=== PATIENT | male | born 1965 | race Caucasian/White ===

== ENCOUNTER → 2018-04-04 16:31 | Outpatient (CLI) | payer BC, SELFPAY ==
[2018-04-04 17:54] LABS: Anion Gap 9 (5-15); BUN 12 mg/dL (7-18); BUN/Creat Ratio 13.1 RATIO (10-20); Calcium,Total 9.3 mg/dL (8.5-10.1); Chloride 104 mmol/L (98-107); Creatinine, Serum 0.92 mg/dL (0.70-1.30); EST Glomerular Filtration Rate 92 mL/min (>60); Est Glom Filt Rate - Afr Amer 111 mL/min (>60); Glucose 93 mg/dL (74-106); PSA,Total - Annual Screen 1.58 ng/mL (0.00-4.00); Potassium 4.2 mmol/L (3.5-5.1); Sodium Level 140 mmol/L (136-145)
== END ==
PROVIDERS: Family Provider Family Medicine; PCP Family Medicine; Visit Provider Family Medicine
DX: Z13.1 Encounter for screening for diabetes mellitus (principal); Z12.5 Encounter for screening for malignant neoplasm of prostate
CPT/HCPCS: 36415; 80048; 84153; G0103

== ENCOUNTER → 2022-10-27 | Outpatient (CLI) | payer OTHER, SELFPAY ==
[2022-10-27 10:22] LABS: Absolute Lymphocyte Count 1.89 X10^3/uL (0.83-4.51); Absolute Neutrophil Count 3.5 X10^3/uL (2.0-7.7); Basophil# 0.04 X10^3/uL; Basophil% 0.7 % (0-1); Eosinophil# 0.29 X10^3/uL; Eosinophils% 4.8 % (0-5); Erythrocyte Sedimentation Rate 11 mm/hr (0-20); Hematocrit 44.1 % (40-54); Lymphocyte # 1.89 X10^3/ul (0.83-4.51); Mean Corpuscular Hgb 29.6 pg (27.0-32.0); Mean Corpuscular Volume 87.2 fL (80-94); Mean Platelet Vol. 9.3 fl (6.2-12.0); Monocyte# 0.39 X10^3/uL; Monocyte% 6.4 % (0-10); NRBC Flagged by Analyzer 0 % (0-5); Neutrophil # 3.48 X10^3/uL (2.7-7.7); Neutrophil % 56.9 % (47-70); Platelet Count 269 K/mm3 (150-450); RBC Distribution Width CV 12.7 % (11.6-14.6); RBC Distribution Width SD 40.2 fl (35.1-43.9); Red Blood Count 5.06 M/mm3 (4.6-6.2); White Blood Count 6.1 K/mm3 (4.4-11.0)
[2022-10-27 10:39] LABS: Anion Gap 7 (5-15); BUN 9 mg/dL (7-18); BUN/Creat Ratio 12.3 RATIO (10-20); Calcium,Total 8.8 mg/dL (8.5-10.1); Chloride 107 mmol/L (98-107); Cholesterol 237 mg/dL (200); Creatinine, Serum 0.73 mg/dL (0.70-1.30); EST Glomerular Filtration Rate 118 mL/min (>60); Est Glom Filt Rate - Afr Amer 142 mL/min (>60); Glucose 115 mg/dL (74-106); High Density Lipoprotein 40 mg/dL; PSA,Total - Annual Screen 2.86 ng/mL (0.00-4.00); Potassium 3.9 mmol/L (3.5-5.1); Sodium Level 136 mmol/L (136-145); Triglycerides 123 mg/dL; Very Low Density Lipoprotein 25 mg/dL (5-40)
== END | disposition home or self-care (01) ==
LOC: MFPLAB 08:34
PROVIDERS: PCP Family Medicine; Visit Provider Family Medicine
DX: Z13.1 Encounter for screening for diabetes mellitus (principal); M54.9 Dorsalgia, unspecified; Z13.220 Encounter for screening for lipoid disorders; Z12.5 Encounter for screening for malignant neoplasm of prostate
CPT/HCPCS: 36415; 80048; 80061; 84153; 85025; 85652; G0103

== ENCOUNTER → 2025-03-25 | Outpatient (CLI) | payer OTHER, SELFPAY ==
[2025-03-25 10:44] LABS: Hematocrit 42.9 % (40-54); Hemoglobin 15.0 g/dL (13.0-16.5); Immature Granulocytes Count 0.020 X10^3/uL (0.0-0.0); Mean Corp Hgb Conc 35.0 g/dL (32-36); Mean Corpuscular Volume 85.1 fL (80-94); Mean Platelet Vol. 9.4 fl (6.2-12.0); NRBC Flagged by Analyzer 0 % (0-5); Platelet Count 272 K/mm3 (150-450); RBC Distribution Width CV 12.8 % (11.6-14.6); RBC Distribution Width SD 39.3 fl (35.1-43.9); Red Blood Count 5.04 M/mm3 (4.6-6.2); White Blood Count 8.1 K/mm3 (4.4-11.0)
[2025-03-25 10:54] LABS: AST(SGOT) 14 U/L (<=37); Alanine Aminotransfer ALT/SGPT 13 U/L (<=46); Albumin, Serum 4.1 g/dL (3.4-4.8); Alkaline Phosphatase 68 U/L (40-129); Anion Gap 12 (5-15); BUN 15 mg/dL (4-19); BUN/Creat Ratio 18.4 RATIO (10-20); CRP 3.03 mg/L (0.0-3.0); Calcium,Total 9.2 mg/dL (7.6-11.0); Carbon Dioxide 20.3 mmol/L (21.0-32.0); Chloride 104 mmol/L (98-108); Globulin 2.6 g/dL (2.2-4.2); Glucose 122 mg/dL (70-99); Potassium 3.9 mmol/L (3.3-5.1)
[2025-03-26 15:07] LABS: Lyme Scn Total Ab w/Rflx Negative (Negative)
== END | disposition home or self-care (01) ==
LOC: MFPLAB 08:35
PROVIDERS: PCP Family Medicine; Visit Provider Family Medicine
DX: R42 Dizziness and giddiness (principal)
CPT/HCPCS: 36415; 80053; 85025; 85652; 86140; 86618

== ENCOUNTER → 2025-05-21 | Outpatient (CLI) | payer OTHER, SELFPAY ==
--- NOTE | 2025-05-21 15:03 | CT_ITS ---
PROCEDURE: SINUS/FACIAL BONE 05/21/2025 REASON FOR EXAM: CHRONIC SINUSITIS TECHNIQUE: Procedure Code: CTSI Modality: CT Procedure: SINUS/FACIAL BONE Coronal and Sagittal reconstruction series were provided. One or more dose reduction techniques were used (e.g., Automated exposure control, adjustment of the mA and/or kV according to patient size, use of iterative reconstruction technique). RADIATION DOSE SUMMARY: CTDlvol: 28.14 mGy DLP: 1541.63 mGycm COMPARISON: None FINDINGS: Frontal: Mucosal thickening of the left frontal sinus posteriorly. Ethmoid: Partial opacification of the ethmoid sinuses bilaterally. Sphenoid: Minimal mucosal thickening of the sphenoid sinuses. No air-fluid level is seen. Maxillary: Minimal nodular mucosal thickening along the anterior inferior medial wall of the right maxillary sinus. The ostiomeatal complexes are widely patent. Turbinates: Unremarkable Nasal Septum: The nasal septum is midline. Mastoids/Middle Ears: Clear. CT/Sinus/Facial Bone IMPRESSION: Partial opacification of the ethmoid sinuses bilaterally as well as minimal muc osal thickening of the sphenoid sinuses and minimal nodular mucosal thickening along the anterior inferior medial wall of t he right maxillary sinus. Reading Location: [place] [id number]
--- OUTSIDE RECORDS SUMMARY | 2025-05-21 17:57 | XMS RPT_ITS | CCD ---
Author Organization [facility] Inform ion Partnership [facility] Care Team Providers Care Construction Plumber Name Role Phone Unavailable Primary Care Provider UnavailShant Clark Attending Unavailable Shant Davis Primary Care Unavailable Medications Current Medications Medication Drug Class(es) Dates Sig (Normalized) Sig (Original) acetaminophen 325 mg / HYDROcodone bitartrate 5 mg oral tablet (1 source) Opioid Agonist Start: 01-24-2014 take 1 tablet by mouth every six hours as needed Hydrocodone-Aceta minophen Active 1 TABLET PO EVERY 6 HOURS NEEDED January 24, 2014 12:00am benzonatate 100 mg oral capsule (1 source) Non-narcotic Antitussive Start: 05-18-2024 take 1 capsule by mouth three times daily as needed for cough benzonatate (TESSALON PERLE) 100 mg capsule Indications: Lower respiratory infection Take 1 capsule by mouth three times a day as needed for cough for up to 12 doses. 12 capsule 05/18/2024 Active codeine phosphate 2 mg/ml / guaiFENesin 20 mg/ml oral solution (1 source) Opioid Agonist Start: 09-16-2015 take 5-10 mL by mouth four times daily as needed for cough codeine-guaiFENes in (ROBITUSSIN AC) 10-100 mg/5 mL syrup Indications: Acute bronchitis, unspecified organism Take 5-10 mL by mouth four times daily as needed for Cough. May cause drowsiness. 120 mL 0 09/16/2015 Active doxycycline monohydrate 100 mg oral capsule (1 source) Tetracycline-class Drug Start: 05-18-2024 End: 05-23-2024 take 1 capsule by mouth twice daily doxycycline monohydrate (MONODOX) 100 mg capsule Indications: Lower respiratory infection Take 1 capsule by mouth two times a day for 5 days. 10 capsule 05/18/2024 05/23/2024 Active Problems Active Problems Problem Classification Problem Date Documented Date Episodic/Chronic Conditions associated with dizziness or vertigo (1 source) Dizziness and giddiness; Translations: [Dizziness and giddiness] Onset: 04-06-2025 Episodic Diverticulosis and diverticulitis (1 source) Diverticulitis of colon; Translations: [Diverticulitis of large intestine without perforation or abscess without bleeding] 06-02-2013 Chronic Other lower respiratory disease (1 source) Lower respiratory tract infection; Translations: [Unspecified acute lower respiratory infection] 05-18-2024 Episodic Residual codes; unclassified (1 source) Tobacco use and exposure - finding; Translations: [Tobacco use] 06-02-2013 Episodic Past or Other Problems Problem Classification Problem Date Documented Da te Episodic/Chronic Abdominal hernia (1 source) Inguinal hernia; Translations: [Unilateral inguinal hernia, without obstruction or gangrene, not specified as recurrent] Onset: 07-03-2006 12-20-2023 Episodic Results Test Name Value Interpretation Reference Range Facility Lyme Screen W/Reflex WBon LYME SCREEN Ab Negative Normal Negative [facility] Comment on above: Order Comment: Order Date: 03/24/25 Order Info: [id number] - LYMS Result Comment: Lyme antibodies not detected. Reflex testing is not indicated. No laboratory evidence of infection with B. burgdorferi (Lyme disease). Negative results may occur in patients recently infected (less than or equal to 14 days) with B. burgdorferi. If recent infection is suspected, repeat testing on a new sample collected in 7 to 14 days is recommended. Performed at: [facility] [id number] Bindery Machine Tender: Morgan Rosario PhD, Phone: [phone] Performed By: #### L 685.0601, L8527.0379, R272.9126, M456.7217 #### [facility], [address] CBC W/Diff, Automatedon 03-11 Absolute Lymph 2.53 X10 3/uL Normal 0.83-4.51 [facility] Comment on above: Order Comment: Order Date: 03/24/25 Order Info: 0184-1 - CBCD Performed By: #### L 500.4050, L7000.5300, L100.0100, L501.6710 #### [facility] [address] [place], [address] Absolute Neut 4.5 X10 3/uL Normal 2.0-7.7 [facility] Comment on above: Order Comment: Order Date: 03/24/25 Order Info: 0184-1 - CBCD Performed By: #### L 500.4050, L7000.5300, L100.0100, L501.6710 #### [facility] [address] [place], [address] Basophils/100 WBC (Bld) 0.6 % Normal 0-1 [facility] Comment on above: Order Comment: Order Date: 03/24/25 Order Info: 0184-1 - CBCD Performed By: #### L 500.4050, L7000.5300, L100.0100, L501.6710 #### [facility] [address] [place], [address] Eosinophils/100 WBC (Bld) 5.6 % High 0-5 [facility] Comment on above: Order Comment: Order Date: 03/24/25 Order Info: 0184-1 - CBCD Performed By: #### L 500.4050, L7000.5300, L100.0100, L501.6710 #### [facility] [address] [place], [address] Erythrocyte distribution width (RBC) [Ratio] 12.8 % Normal 11.6-14.6 [facility] Comment on above: Order Comment: Order Date: 03/24/25 Order Info: 0184-1 - CBCD Performed By: #### L 500.4050, L7000.5300, L100.0100, L501.6710 #### [facility] [address] [place], [address] Hematocrit (Bld) [Volume fraction] 42.9 % Normal 40-54 [facility] Comment on above: Order Comment: Order Date: 03/24/25 Order Info: 0184-1 - CBCD Performed By: #### L 500.4050, L7000.5300, L100.0100, L501.6710 #### [facility] [address] [place], [address] Hemoglobin (Bld) [Mass/Vol] 15.0 g/dL Normal 13.0-16.5 [facility] Comment on above: Order Comment: Order Date: 03/24/25 Order Info: 0184-1 - CBCD Performed By: #### L 500.4050, L7000.5300, L100.0100, L501.6710 #### [facility] [address] [place], [address] IG% 0.200 Normal 0.0-0.9 [facility] Comment on above: Order Comment: Order Date: 03/24/25 Order Info: 0184-1 - CBCD Result Comment: IG% - Immature Granulocytes (promyelocytes, myelocytes and metamyelocytes) > 1% indicates that a LEFT SHIFT is Present. Performed By: #### L 500.4050, L7000.5300, L100.0100, L501.6710 #### [facility] [address] [place], [address] Lymphocytes/100 WBC (Bld) 31.4 % Normal 19-41 [facility] Comment on above: Order Comment: Order Date: 03/24/25 Order Info: 0184-1 - CBCD Performed By: #### L 500.4050, L7000.5300, L100.0100, L501.6710 #### [facility] [address] [place], [address] MCH (RBC) [Entitic mass] 29.8 pg Normal 27.0-32.0 [facility] Comment on above: Order Comment: Order Date: 03/24/25 Order Info: 0184-1 - CBCD Performed By: #### L 500.4050, L7000.5300, L100.0100, L501.6710 #### [facility] [address] [place], [address] MCHC (RBC) [Mass/Vol] 35.0 g/dL Normal 32-36 [facility] Comment on above: Order Comment: Order Date: 03/24/25 Order Info: 0184-1 - CBCD Performed By: #### L 500.4050, L7000.5300, L100.0100, L501.6710 #### [facility] [address] [place], [address] MCV (RBC) [Entitic vol] 85.1 fL Normal 80-94 [facility] Comment on above: Order Comment: Order Date: 03/24/25 Order Info: 0184-1 - CBCD Performed By: #### L 500.4050, L7000.5300, L100.0100, L501.6710 #### [facility] [address] [place], [address] Monocytes/100 WBC (Bld) 6.7 % Normal 0-10 [facility] Comment on above: Order Comment: Order Date: 03/24/25 Order Info: 0184-1 - CBCD Performed By: #### L 500.4050, L7000.5300, L100.0100, L501.6710 #### [facility] [address] [place], [address] Neutrophils/100 WBC (Bld) 55.5 % Normal 47-70 [facility] Comment on above: Order Comment: Order Date: 03/24/25 Order Info: 0184-1 - CBCD Performed By: #### L 500.4050, L7000.5300, L100.0100, L501.6710 #### [facility] [address] [place], [address] Nucleated RBC (Bld) [#/Vol] 0 10*3/uL Normal 0-5 [facility] Comment on above: Order Comment: Order Date: 03/24/25 Order Info: 0184-1 - CBCD Performed By: #### L 500.4050, L7000.5300, L100.0100, L501.6710 #### [facility] [address] [place], [address] Platelet mean volume (Bld) [Entitic vol] 9.4 fL Normal 6.2-12.0 [facility] Comment on above: Order Comment: Order Date: 03/24/25 Order Info: 0184-1 - CBCD Performed By: #### L 500.4050, L7000.5300, L100.0100, L501.6710 #### [facility] [address] [place], [address] Platelets (Bld) [#/Vol] 272 10*3/uL Normal 150-450 [facility] Comment on above: Order Comment: Order Date: 03/24/25 Order Info: 0184-1 - CBCD Performed By: #### L 500.4050, L7000.5300, L100.0100, L501.6710 #### [facility] [address] [place], [address] RBC (Bld) [#/Vol] 5.04 10*6/uL Normal 4.6-6.2 [facility] Comment on above: Order Comment: Order Date: 03/24/25 Order Info: 0184-1 - CBCD Performed By: #### L 500.4050, L7000.5300, L100.0100, L501.6710 #### [facility] [address] [place], [address] RDW SD 39.3 fl Normal 35.1-43.9 [facility] Comment on above: Order Comment: Order Date: 03/24/25 Order Info: 0184-1 - CBCD Performed By: #### L 500.4050, L7000.5300, L100.0100, L501.6710 #### [facility] [address] [facility] [place], [address] WBC (Bld) [#/Vol] 8.1 10*3/uL Normal 4.4-11.0 [facility] Comment on above: Order Comment: Order Date: 03/24/25 Order Info: 0184-1 - CBCD Performed By: #### L 500.4050, L7000.5300, L100.0100, L501.6710 #### [facility] [address] [facility] [place], [address] CRPon 03-25-2025 C-REACTIVE PROT 3.03 mg/L High 0.0-3.0 [facility] Comment on above: Order Comment: Order Date: 03/24/25 Order Info: 0786-1 - CMP Order Info: [id number] - CRP Performed By: #### L 500.4050, L7000.5300, L100.0100, L501.6710 #### [facility] [address] [place], [address] Comprehensive Metabolic Prof ilon 03-25-2025 Albumin [Mass/Vol] 4.1 g/dL Normal 3.4-4.8 [facility] Comment on above: Order Comment: Order Date: 03/24/25 Order Info: 0786-1 - CMP Order Info: [id number] - CRP Performed By: #### L 500.4050, L7000.5300, L100.0100, L501.6710 #### [facility] [address] [facility] [place], [address] Albumin/Globulin [Mass ratio] 1.6 {ratio} Normal 0.9-2.4 [facility] Comment on above: Order Comment: Order Date: 03/24/25 Order Info: 0786-1 - CMP Order Info: [id number] - CRP Performed By: #### L 500.4050, L7000.5300, L100.0100, L501.6710 #### [facility] [address] [place], [address] ALK PHOS 68 U/L Normal 40-129 [facility] Comment on above: Order Comment: Order Date: 03/24/25 Order Info: 0786-1 - CMP Order Info: [id number] - CRP Performed By: #### L 500.4050, L7000.5300, L100.0100, L501.6710 #### [facility] [address] [place], [address] ALT [Catalytic activity/Vol] 13 U/L Normal <=46 [facility] Comment on above: Order Comment: Order Date: 03/24/25 Order Info: 0786-1 - CMP Order Info: [id number] - CRP Performed By: #### L 500.4050, L7000.5300, L100.0100, L501.6710 #### [facility] [address] [place], [address] AST [Catalytic activity/Vol] 14 U/L Normal <=37 [facility] Comment on above: Order Comment: Order Date: 03/24/25 Order Info: 0786-1 - CMP Order Info: [id number] - CRP Performed By: #### L 500.4050, L7000.5300, L100.0100, L501.6710 #### [facility] [address] [place], [address] Bilirubin [Mass/Vol] 0.21 mg/dL Normal 0.00-1.30 [facility] Comment on above: Order Comment: Order Date: 03/24/25 Order Info: 0786-1 - CMP Order Info: [id number] - CRP Performed By: #### L 500.4050, L7000.5300, L100.0100, L501.6710 #### [facility] [address] [place], [address] BUN/CRE 18.4 RATIO Normal 10-20 [facility] Comment on above: Order Comment: Order Date: 03/24/25 Order Info: 0786-1 - CMP Order Info: [id number] - CRP Performed By: #### L 500.4050, L7000.5300, L100.0100, L501.6710 #### [facility] [address] [place], [address] Calcium [Mass/Vol] 9.2 mg/dL Normal 7.6-11.0 [facility] Comment on above: Order Comment: Order Date: 03/24/25 Order Info: 0786-1 - CMP Order Info: [id number] - CRP Performed By: #### L 500.4050, L7000.5300, L100.0100, L501.6710 #### [facility] [address] [place], [address] Chloride [Moles/Vol] 104 mmol/L Normal 98-108 [facility] Comment on above: Order Comment: Order Date: 03/24/25 Order Info: 0786-1 - CMP Order Info: [id number] - CRP Performed By: #### L 500.4050, L7000.5300, L100.0100, L501.6710 #### [facility] [address] [place], [address] CO2 [Moles/Vol] 20.3 mmol/L Low 21.0-32.0 [facility] Comment on above: Order Comment: Order Date: 03/24/25 Order Info: 0786-1 - CMP Order Info: [id number] - CRP Performed By: #### L 500.4050, L7000.5300, L100.0100, L501.6710 #### [facility] [address] [place], [address] Creatinine [Mass/Vol] 0.80 mg/dL Normal 0.70-1.20 [facility] Comment on above: Order Comment: Order Date: 03/24/25 Order Info: 0786-1 - CMP Order Info: [id number] - CRP Performed By: #### L 500.4050, L7000.5300, L100.0100, L501.6710 #### [facility] [address] [place], [address] GAP 12 Normal 5-15 [facility] Comment on above: Order Comment: Order Date: 03/24/25 Order Info: 0786-1 - CMP Order Info: [id number] - CRP Performed By: #### L 500.4050, L7000.5300, L100.0100, L501.6710 #### [facility] [address] [place], [address] GFR/1.73 sq M.predicted among non-blacks MDRD (S/P/Bld) [Vol rate/Area] 101 mL/min/{1.73_m2} Normal >60 [facility] Comment on above: Order Comment: Order Date: 03/24/25 Order Info: 0786-1 - CMP Order Info: [id number] - CRP Result Comment: mL/m in/1.73m2 CKD-EPI Creatinine Equation (2020) Performed By: #### L 500.4050, L7000.5300, L100.0100, L501.6710 #### [facility] [address] [place], [address] Globulin (S) [Mass/Vol] 2.6 g/dL Normal 2.2-4.2 [facility] Comment on above: Order Comment: Order Date: 03/24/25 Order Info: 0786-1 - CMP Order Info: [id number] - CRP Performed By: #### L 500.4050, L7000.5300, L100.0100, L501.6710 #### [facility] [address] [place], [address] Glucose [Mass/Vol] 122 mg/dL High 70-99 [facility] Comment on above: Order Comment: Order Date: 03/24/25 Order Info: 0786-1 - CMP Order Info: [id number] - CRP Performed By: #### L 500.4050, L7000.5300, L100.0100, L501.6710 #### [facility] [address] [place], [address] Potassium [Moles/Vol] 3.9 mmol/L Normal 3.3-5.1 [facility] Comment on above: Order Comment: Order Date: 03/24/25 Order Info: 0786-1 - CMP Order Info: [id number] - CRP Performed By: #### L 500.4050, L7000.5300, L100.0100, L501.6710 #### [facility] [address] [place], [address] Sodium [Moles/Vol] 136 mmol/L Normal 133-145 [facility] Comment on above: Order Comment: Order Date: 03/24/25 Order Info: 0786-1 - CMP Order Info: [id number] - CRP Performed By: #### L 500.4050, L7000.5300, L100.0100, L501.6710 #### [facility] [address] [place], [address] T PROT 6.7 g/dL Normal 5.9-8.4 [facility] Comment on above: Order Comment: Order Date: 03/24/25 Order Info: 0786-1 - CMP Order Info: [id number] - CRP Performed By: #### L 500.4050, L7000.5300, L100.0100, L501.6710 #### [facility] [address] [place], [address] Urea nitrogen [Mass/Vol] 15 mg/dL Normal 4-19 [facility] Comment on above: Order Comment: Order Date: 03/24/25 Order Info: 0786-1 - CMP Order Info: [id number] - CRP Performed By: #### L 500.4050, L7000.5300, L100.0100, L501.6710 #### [facility] [address] [place], [place], [address] Erythrocyte Sed Rateon 03-25 SED RATE 10 mm/hr Normal 0-20 [facility] Comment on above: Order Comment: Order Date: 03/24/25 Order Info: 0184-1 - CBCD Performed By: #### L 101.9900 #### [facility] [address] [place], [place], [address] CNOVon 05-18-2024 CNOV Office Visit (UCWSTR) ---- WILLIAMDEZ ([id number]) 1965 M Date Time Provider Department 05/18/24 10:00 AM ALLISON VIERA [facility] During your visit today, we recorded the following information about you: Temperature Pulse Respiration Blood pressure 97.9 degrees 104/minute 18/minute 122/72 Weight 95.4 kg Allison Viera APRN.CNP 05/18/2024 10:00 AM Signed This note was created using NoteWriter. Subjective Dez Thomas is a 58 year old male. HPI For the last week patient has had nonproductive cough and now worsening shortness of breath. Multiple coworkers have also been sick. Review of Systems Constitutional: Negative for fever. HENT: Positive for congestion. Respiratory: Positive for cough and shortness of breath. Objective BP 122/72 Pulse 104 Temp 36.6 ?C (97.9 ?F) Resp 18 Wt 95.4 kg (210 lb 5.1 oz) SpO2 96% BMI 28.92 kg/m? Physical Exam Vitals and nursing note reviewed. Constitutional: General: He is not in acute distress. Appearance: Normal appearance. He is not ill-appearing. HENT: Head: Normocephalic. Mouth/Throat: Mouth: Mucous membranes are moist. Eyes: Conjunctiva/sclera: Conjunctivae normal. Cardiovascular: Rate and Rhythm: Normal rate and regular rhythm. Pulmonary: Effort: Pulmonary effort is normal. Breath sounds: Rhonchi present. Musculoskeletal: General: Normal range of motion. Cervical back: Normal range of motion. Skin: General: Skin is warm and dry. Neurological: General: No focal deficit present. Mental Status: He is alert. Psychiatric: Mood and Affect: Mood normal. Behavior: Behavior normal. Assessment and Plan ASSESSMENT/PLAN: 1. Lower respiratory infection - ICD9: 519.8, ICD10: J22 Patient presents clinically with signs consistent with lower respiratory tract infection. He will be started on doxycycline and given Tessalon Perles for cough suppressant. I did discuss with him that the cough may last for several weeks after resolution of symptoms otherwise. - BENZONATATE 100 MG CAPSULE - DOXYCYCLINE MONOHYDRATE 100 MG CAPSULE Allison Viera APRN.EDGARDO Allergies As of Date: 05/18/2024 (No Known Allergies) Date Reviewed: 05/18/2024 Reviewed by: Allison Viera APRN.ROCK WORKER - Fully Assessed Reason for Visit: Cough [28] Cmt: sob x 5 days Primary Visit Diagnosis:Lower respiratory infection [J22] Order(s):benzonatat e (TESSALON PERLE) 100 mg capsuleTake 1 capsule by mouth three times a day as needed for cough for up to 12 doses.Disp: 12 capsuleRfl: 0 doxycycline monohydrate (MONODOX) 100 mg capsuleTake 1 capsule by mouth two times a day for 5 days.Disp: 10 capsuleRfl: 0 Prescriptions as of 05/18/2024 - benzonatate (TESSALON PERLE) 100 mg capsule Take 1 capsule by mouth three times a day as needed for cough for up to 12 doses. - doxycycline monohydrate (MONODOX) 100 mg capsule Take 1 capsule by mouth two times a day for 5 days. - codeine-guaiFENesin (ROBITUSSIN AC) 10-100 mg/5 mL syrup Take 5-10 mL by mouth four times daily as needed for Cough. May cause drowsiness. Problem List As Of Date 05/18/2024 Noted Resolved UNILAT INGUINAL HERNIA [K40.90] 07/03/2006 Prescriptions ordered this encounter Disp Refills Start End BENZONATATE 100 MG CAPSULE 12 c* 0 05/18/2024 Route: ORAL Sig: Take 1 capsule by mouth three times a day as needed for cough for up to 12 doses. DOXYCYCLINE MONOHYDRATE 100 MG CAPSU* 10 c* 0 05/18/2024 05/23/2024 Route: ORAL Sig: Take 1 capsule by mouth two times a day for 5 days. Letter Text Encounter Status:Closed by ALLISON VIERA on 05/18/[address] [facility] Absolute lymphocyte countOrd ered By: Dr. Davis on 10-27-2022 Lymphocytes Auto (Unsp spec) [#/Vol] 1.89 10*3/uL 0.83-4.51 [facility] Basophil percentageOrdered B y: Dr. Davis on 10-27-2022 Basophils/100 WBC (Bld) 0.7 % 0-1 [facility] Chloride [Moles/Vol] 107 mmol/L 98-107 [facility] Cholesterol [Mass/Vol] 237 mg/dL <200 [facility] Comment on above: <200 mg/dL Desirable 200-240 mg/dL Borderline >240 mg/dL High Risk Eosinophils/100 WBC (Bld) 4.8 % 0-5 [facility] Glucose [Mass/Vol] 115 mg/dL 74-106 [facility] Comment on above: Fasting Glucose resu lt from 100 to 125 mg/dL suggests IMPAIRED HOMEOSTASIS per A.D.A. criteria. Neutrophils (Bld) [#/Vol] 3.5 10*3/uL 2.0-7.7 [facility] Neutrophils/100 WBC (Bld) 56.9 % 47-70 [facility] Potassium [Moles/Vol] 3.9 mmol/L 3.5-5.1 [facility] Sodium [Moles/Vol] 136 mmol/L 136-145 [facility] Triglyceride [Mass/Vol] 123 mg/dL <199 [facility] Comment on above: The drugs N-Acetylcy steine and Metamizole may falsely depress this assay.Serum Triglycerides Reference Interval Normal <150 mg/dL Borderline high 150 - 199 mg/dL High 200 - 499 mg/dL Very High > or = 500 mg/dL WBC (Bld) [#/Vol] 6.1 10*3/uL 4.4-11.0 [facility] Blood erythrocytes count (nu mber/volume)Ordered By: Dr. Davis on 10-27-2022 RBC (Bld) [#/Vol] 5.06 10*6/uL 4.6-6.2 [facility] Blood hemoglobin measurement (mass/volume)Ordered By: Dr. Davis on 10-27-2022 Hemoglobin (Bld) [Mass/Vol] 15.0 g/dL 13.0-16.5 [facility] Blood lymphocytes/100 leukoc ytesOrdered By: Dr. Davis on 10-27-2022 Lymphocytes/100 WBC (Bld) 31.0 % 19-41 [facility] Blood monocytes/100 leukocyt esOrdered By: Dr. Davis on 10-27-2022 Monocytes/100 WBC (Bld) 6.4 % 0-10 [facility] Blood platelet mean volumeOr dered By: Dr. Davis on 10-27-2022 Platelet mean volume (Bld) [Entitic vol] 9.3 fL 6.2-12.0 [facility] Determination of erythrocyte mean corpuscular volume (MCV)Ordered By: Dr. Davis on 10-27-2022 MCV (RBC) [Entitic vol] 87.2 fL 80-94 [facility] Erythrocyte sedimentation ra teOrdered By: Dr. Davis on 10-27-2022 ESR (Bld) [Velocity] 11 mm/h 0-20 [facility] Hematocrit Auto (Bld) [Volum e fraction]Ordered By: Dr. Davis on 10-27-2022 Hematocrit (Bld) [Volume fraction] 44.1 % 40-54 [facility] - Chemistry and C hemistry - challengeOrdered By: Dr. Davis on 10-27-2022 CO2 [Moles/Vol] 22.0 mmol/L 21.0-32.0 [facility] Urea nitrogen/Creatinine [Mass ratio] 12.3 mg/mg 10-20 [facility] - Hematology and Cell countsOrdered By: Dr. Davis on 10-27-2022 Erythrocyte distribution width (RBC) [Entitic vol] 40.2 fL 35.1-43.9 [facility] Erythrocyte distribution width (RBC) [Ratio] 12.7 % 11.6-14.6 [facility] Immature granulocytes/100 WBC (Bld) 0.200 % 0.0-0.9 [facility] Comment on above: IG% - Immature Granu locytes (promyelocytes, myelocytes and metamyelocytes) > 1% indicates that a LEFT SHIFT is Present. MCH (RBC) [Entitic mass] 29.6 pg 27.0-32.0 [facility] Nucleated RBC/100 WBC (Bld) [Ratio] 0 % 0-5 [facility] MCHC Auto (RBC) [Mass/Vol]Or dered By: Dr. Davis on 10-27-2022 MCHC (RBC) [Mass/Vol] 34.0 g/dL 32-36 [facility] No Panel InformationOrdered By: Dr. Davis on 10-27-2022 Estimated GFR (MDRD) Amer 142 mL/min >60 [facility] Comment on above: GFR Calc Estimated GFR (MDRD) Non-Af Amer 118 mL/min >60 [facility] Comment on above: Non- GFR Calc Prostate Specific Antigen Screen 2.86 ng/mL 0.00-4.00 [facility] Comment on above: This test was perfor med using the TPSA assay method [facility] the[facility]. Values obtained with differentassay methods cannot be used interchangably.When changing PSA assays in the course of monitoring apatient, additional sequential testing should be carriedout to confirm baseline values. Platelets bldOrdered By: Dr. Davis on 10-27-2022 Platelets (Bld) [#/Vol] 269 10*3/uL 150-450 [facility] Serum or plasma calcium elicia urement (mass/volume)Ordered By: Dr. Davis on 10-27-2022 Calcium [Mass/Vol] 8.8 mg/dL 8.5-10.1 [facility] Serum or plasma cholesterol in HDL measurement (mass/volume)Ordered By: Dr. Davis on 10-27-2022 Cholesterol in HDL [Mass/Vol] 40 mg/dL >40 [facility] Comment on above: The drugs N-Acetylcy steine and Metamizole may falsely depress this assay. Reference Range HDL <40 mg/dL Low HDL Cholesterol HDL >or= 60 mg/dL High HDL Cholesterol Serum or plasma cholesterol in VLDL measurement (mass/volume)Ordered By: Dr. Davis on 10-27-2022 Cholesterol in VLDL [Mass/Vol] 25 mg/dL 5-40 [facility] Serum or plasma creatinine m easurement (mass/volume)Ordered By: Dr. Davis on 10-27-2022 Creatinine [Mass/Vol] 0.73 mg/dL 0.70-1.30 [facility] Comment on above: The validity of the calculated GFR & GFRAA in patients over 70 years has not been determined. Clinical correlation is essential. Serum or plasma low density lipoprotein (LDL) cholesterol measurement (mass/volume)Ordered By: Dr. Davis on 10-27-2022 Cholesterol in LDL [Mass/Vol] 172 mg/dL 0-130 [facility] Serum or plasma urea nitroge n measurement (mass/volume)Ordered By: Dr. Davis on 10-27-2022 Urea nitrogen [Mass/Vol] 9 mg/dL 7-18 [facility] Thin prep Papanicolaou smear with manual screeningOrdered By: Dr. Davis on 10-27-2022 Thin prep Papanicolaou smear with manual screening 7 5-15 [facility] Vital Signs Date Time Vital Sign Value Performing Clinician Roosevelt momin 05-18-2024 09:53-0500 Body mass index (BMI) [Ratio] 28.92 kg/m2 Allison Viera APRN.CNP Work Phone: [facility] 05-18-2024 09:53-0500 Body temperature 97.9 [degF] Allison Viera APRN.CNP Work Phone: [facility] 05-18-2024 09:53-0500 Body weight 95.4 kg Allison Viera APRN.CNP Work Phone: [facility] 05-18-2024 09:53-0500 Diastolic blood pressure 72 mm[Hg] Allison Moomaw [employer] Work Phone: [facility] 05-18-2024 09:53-0500 Heart rate 104 /min Allison Moomaw [employer] Work Phone: [facility] 05-18-2024 09:53-0500 Respiratory rate 18 /min Allison Chongomaw [employer] Work Phone: [facility] 05-18-2024 09:53-0500 SaO2% (BldA) [Mass fraction] 96 % Allison Dadaw [employer] WORK[employer] Work Phone: [facility] 05-18-2024 09:53-0500 Systolic blood pressure 122 mm[Hg] Allison Moomaw [employer] WORK[employer] Work Phone: [facility] Encounters Encounter Date Encounter Type Care Provider Facility Start: 03-25-2025 End: 03-25-2025 ambulatory [facility] Facility:[facility] Start: 05-18-2024 End: 05-18-2024 ambulatory Facility:[facility] Start: 05-18-2024 End: 05-18-2024 Patient encounter procedure Allison Dadaw [employer] Work Phone: [facility] Comment on above: Lower respiratory in fection (Primary Dx) Start: 10-27-2022 End: 10-27-2022 ambulatory [facility] Work Phone: Start: 10-27-2022 End: 10-27-2022 Patient encounter procedure [facility] Procedures Date Procedure Procedure Detail Performing Clinician Start: 04-05-2015 Colonoscopy Allison Viera [employer] Work Phone: Plan of Treatment Date Care Activity Detail Author Start: 04-04-2028 Urine microalbumin profile DTa P,Tdap,Td Vaccine (2 - Td or Tdap) [facility] Start: 04-05-2025 Screening for malign ant neoplasm of colon [facility] Start: 02-10-2024 Covid-19 Vaccine ( season) Covid-19 Vaccine () [facility] Start: 02-10-2024 Influenza vaccination Influenza Vacc ine (#1) [facility] Start: 10-30-2019 Prostate specific an tigen measurement Prostate Cancer Screening Discussion [facility] Start: 2009 Diabetes Screening Diabetes Screenin g [facility] Start: 2009 Screening for malign ant neoplasm of colon [facility] Start: 10-30-1999 Lipid panel Lipid Screening [facility] Start: 1982 Anxiety Screening Anxiety Screening [facility] Start: 1982 Depression Screening Depression Scre ening [facility] Start: 1982 Hepatitis C screening Hepatitis C Sc reening [facility] Start: 1982 HIV screening HIV Screening [facility] Payers Date Payer Category Payer Self-pay [id number] 2023 Private Health Insurance [facility] [employer] [id number] 2023-Present [phone] [address] [place] [address] O [id number] 2023 Unknown [id number] 2011 Unknown EZ [id number] Unknown [id number] Social History Date Type Detail Facility [facility]: [facility] Start: 10-27-2022 Cigarettes [facility] Start: 1965 Sex Assigned At Male [facility] Start: 05-18-2024 [facility] History of tobacco use Current smoker [facility] History of tobacco use Cigarette Smoker [facility] Start: 05-18-2024 Tobacco use and exposure Smokeless tobacco non-user [facility] Start: 05-18-2024 Alcoholic beverage intake Current non-drinker of alcohol (finding) [facility] Start: 05-18-2024 History of Social function [facility] Start: 05-18-2024 Tobacco use panel [facility] Start: 1965 Sex assigned at Not on file [facility] Progress note 05-18-2024 Note Date & Type Note Facility 05-18-2024 Note HNO ID: [id number] Author: ALLISON VIERA APRN.EDGARDO Service: ? Author Type: Nurse Practitioner Type: Progress Notes Filed: 05/18/2024 10:00 Note Text: This note was created using [employer]. Subjective Dez Thomas is a 58 year old male. HPI For the last week patient has had nonproductive cough and now worsening shortness of breath. Multiple coworkers have also been sick. Review of Systems Constitutional: Negative for fever. HENT: Positive for congestion. Respiratory: Positive for cough and shortness of breath. Objective BP 122/72 Pulse 104 Temp 36.6 ?C (97.9 ?F) Resp 18 Wt 95.4 kg (210 lb 5.1 oz) SpO2 96% BMI 28.92 kg/m? Physical Exam Vitals and nursing note reviewed. Constitutional: General: He is not in acute distress. Appearance: Normal appearance. He is not ill-appearing. HENT: Head: Normocephalic. Mouth/Throat: Mouth: Mucous membranes are moist. Eyes: Conjunctiva/sclera: Conjunctivae normal. Cardiovascular: Rate and Rhythm: Normal rate and regular rhythm. Pulmonary: Effort: Pulmonary effort is normal. Breath sounds: Rhonchi present. Musculoskeletal: General: Normal range of motion. Cervical back: Normal range of motion. Skin: General: Skin is warm and dry. Neurological: General: No focal deficit present. Mental Status: He is alert. Psychiatric: Mood and Affect: Mood normal. Behavior: Behavior normal. Assessment and Plan ASSESSMENT/PLAN: 1. Lower respiratory infection - ICD9: 519.8, ICD10: J22 Patient presents clinically with signs consistent with lower respiratory tract infection. He will be started on doxycycline and given Tessalon Perles for cough suppressant. I did discuss with him that the cough may last for several weeks after resolution of symptoms otherwise. - BENZONATATE 100 MG CAPSULE - DOXYCYCLINE MONOHYDRATE 100 MG CAPSULE Allison Viera APRN.CNP [facility] History of Present illness Narrative 05-18-2024 Allison Viera APRN.CNP - 05/18/2024 9:54 AM EST Note Date & Type Note Facility 05-18-2024 History of Liana t illness Narrative This note was created using [employer]. Subjective Dez Thomas is a 58 year old male. HPI For the last week patient has had nonproductive cough and now worsening shortness of breath. Multiple coworkers have also been sick. Review of Systems Constitutional: Negative for fever. HENT: Positive for congestion. Respiratory: Positive for cough and shortness of breath. Objective BP 122/72 Pulse 104 Temp 36.6 C (97.9 F) Resp 18 Wt 95.4 kg (210 lb 5.1 oz) SpO2 96% BMI 28.92 kg/m Physical Exam Vitals and nursing note reviewed. Constitutional: General: He is not in acute distress. Appearance: Normal appearance. He is not ill-appearing. HENT: Head: Normocephalic. Mouth/Throat: Mouth: Mucous membranes are moist. Eyes: Conjunctiva/sclera: Conjunctivae normal. Cardiovascular: Rate and Rhythm: Normal rate and regular rhythm. Pulmonary: Effort: Pulmonary effort is normal. Breath sounds: Rhonchi present. Musculoskeletal: General: Normal range of motion. Cervical back: Normal range of motion. Skin: General: Skin is warm and dry. Neurological: General: No focal deficit present. Mental Status: He is alert. Psychiatric: Mood and Affect: Mood normal. Behavior: Behavior normal. Assessment and Plan ASSESSMENT/PLAN: 1. Lower respiratory infection - ICD9: 519.8, ICD10: J22 Patient presents clinically with signs consistent with lower respiratory tract infection. He will be started on doxycycline and given Tessalon Perles for cough suppressant. I did discuss with him that the cough may last for several weeks after resolution of symptoms otherwise. - BENZONATATE 100 MG CAPSULE - DOXYCYCLINE MONOHYDRATE 100 MG CAPSULE Allison Viera APRN.CNP documented in this encounter [facility] Evaluation note Note Date & Type Note Facility Evaluation note No assessment information availa [facility] Work Phone: Evaluation note Note Date & Type Note Facility Evaluation note Diagnosis Lower respiratory infection- Primary Other diseases of respiratory system, not elsewhere classified documented in this encounter [facility] Summary Purpose Family History No Family History Records FoundNo Family History Records Found Advance Directives No Advanced Directives Records FoundNo Advanced Directives Records Found Additional Source Comments Care Teams (unrecognized sec tion and content) Team Status: Active Member Role Status Dates Dr. Rick Davis MD Family Provider Active Dr. Rick Davis MD Primary Care Provider Activ e Team Status: Inactive Member Role Status Dates Dr. Rick Davis MD Primary Care Provider, Atte nding Provider Active Goals (unrecognized section and content) Goals may be documented in a n alternate section Source Comments (unrecognize d section and content) In the event this informatio n is protected by the Federal Confidentiality of Alcohol and Drug Abuse Patient Records regulations: The Federal rules restrict any use of the information to criminally investigate or prosecute any alcohol or drug abuse patient.[facility] Reason for Visit (unrecogniz ed section and content) Reason Comments Cough sob x 5 days (unrecognized sect ion and content) No Status Records FoundNo Status Records Found INFORMATION SOURCE (unrecogn ized section and content) DATE CREATED AUTHOR 05/21/[address] [facility] DATE CREATED AUTHOR AUTHOR'S ORGANIZ ATION 04/06/[address] [facility] FOR RECORDS PERTAINING TO PATIENTS WHO ARE OR HAVE BEEN ENROLLED IN A CHEMICAL DEPENDENCY/SUBSTANCEABUSE PROGRAM, SOME INFORMATION MAY BE OMITTED. This clinical summary was aggregated from multiple sources. Caution should be exercised in using it in the provision of clinical care. This summary normalizes information from multiple sources, and as a consequence, information in this document may materially change the coding, format and clinical context of patient data. In addition, data may be omitted in some cases. CLINICAL DECISIONS SHOULD BE BASED ON THE PRIMARY CLINICAL RECORDS. [facility]. provides no warranty or guarantee of the accuracy or completeness of information in this document.
== END | disposition home or self-care (01) ==
LOC: CT 15:02
PROVIDERS: PCP Family Medicine; Referring Provider Otolaryngology; Visit Provider Otolaryngology
DX: J32.8 Other chronic sinusitis (principal)
CPT/HCPCS: 70486